=== PATIENT | female | born 1975 | race Hispanic/Latino ===

== ENCOUNTER 2018-04-25 14:45 | Emergency (ER) | payer BC ==
[~2018-04-25 14:45] MED LIST: Iopamidol 370 76% 100 ML VIAL ONE
[2018-04-25 15:33] LABS: #Basophils 0.1 thou/uL (0.0-0.2); #Eosinphils 0.3 thou/uL (0.0-0.7); #Lymphocytes 2.5 thou/uL (1.20-3.40); #Monocytes 0.6 thou/uL (0.11-0.59); #Neutrophils 5.9 thou/uL (1.40-6.50); %Basophils 1.1 % (0.0-1.0); %Eosinophils 3.1 % (0.0-10.0); %Lymphocytes 26.8 % (21.0-51.0); %Monocytes 5.9 % (0.0-10.0); %Neutrophils 63.1 % (42.0-75.0); Hemoglobin 13.7 g/dL (12.0-16.0); Mean Corpuscular HGB CONC 32.3 g/dL (32.0-36.0); Mean Corpuscular Hemoglobin 29.3 pg (27.0-31.0); Mean Corpuscular Volume 90.7 fL (78.0-98.0); Mean Platelet Volume 9.9 fL (7.4-10.4); Platelet Count 211 thou/uL (130-400); RBC Distribution Width 11.5 % (11.5-14.5); Red Blood Cell (RBC) Count 4.68 mill/uL (4.20-5.40); White Blood Cell (WBC) Count 9.3 thou/uL (4.8-10.8)
[2018-04-25 15:39] LABS: Bilirubin Negative (Negative); Blood, Urine Negative (Negative); Clarity Clear (Clear); Glucose, Urine (Dipstick) Negative (Negative); Leukocyte Negative (Negative); Nitrite Negative (Negative); Protein, Urine (Dipstick) Negative (Neg-Trace); Specific Gravity, Urine 1.015 (1.005-1.030); Urobilinogen 0.2 mg/dL (0.2-1.0)
[2018-04-25 15:47] LABS: BHCG - Serum Negative (NEGATIVE); Pregs Control Background? CLEAR/WHITE (CLR/WHITE); Pregs Control Bar Appear? YES (CONTROL BAR)
[2018-04-25 15:48] LABS: ALT (SGPT) 14 U/L (8-55); AST (SGOT) 16 U/L (5-34); Albumin 4.1 g/dL (3.5-5.0); Alkaline Phosphatase 56 U/L (40-150); Anion Gap 11 mmol/L (10-20); BUN (Urea Nitrogen) 10 mg/dL (7.0-18.7); Bilirubin, Total 0.4 mg/dL (0.2-1.2); Calc. Creatinine Clearance 0 mL/min (70-130); Calcium 9.2 mg/dL (7.8-10.44); Carbon Dioxide 25 mmol/L (22-29); Chloride 108 mmol/L (98-107); Estimated GFR-MDRD 84; Globulin 3.3 g/dL (2.4-3.5); Glucose 88 mg/dL (70-105); Lipase 51 U/L (8-78); Potassium 3.5 mmol/L (3.5-5.1); Protein, Total 7.4 g/dL (6.0-8.3); Sodium 140 mmol/L (136-145)
[2018-04-25] MEDS ORDERED: Morphine 4 MG/ML VIAL ONE (16:21)
[2018-04-25] MEDS ORDERED: Fentanyl 100 MCG/2 ML VIAL ONE (16:22)
--- NOTE | 2018-04-25 17:14 | CT ---
CT OF THE ABDOMEN AND PELVIS WITH CONTRAST 04/25/18 COMPARISON: None. HISTORY: Left flank pain that began yesterday. TECHNIQUE: Multiple contiguous axial images were obtained in a CT of the abdomen and pelvis with contrast. Coron al reformats were performed. FINDINGS: There is cortical thinning in the left kidney with associated calcifications. This may be from prior procedure or renal infarction. There are calcifications in the left kidney which are nonobstructing. Some of these may be cortically based but could also be collecting system calcifications. There are c alcifications in the left kidney which are nonobstructing. Some of these may be cortically based but there could also be collecting system calcifications. The largest measures 3 mm in size. No hydroneph rosis is seen on either side. Patient is status post cholecystectomy. There is intrahepatic biliary dilatation and enlargement of t he common bile duct to 11 mm. This may be a reservoir effect from prior cholecystectomy. The right ki dney, adrenal glands, spleen, and pancreas are unremarkable. The reproductive organs are unremarkable . The large and small bowel are unremarkable. The appendix is normal. No abdominal or pelvic lymphade nopathy are seen. The osseous structures, visualized inferior thorax and abdominal wall soft tissues are unremarkable. IMPRESSION: 1. Nonobstructing left renal calcifications. 2. Scarring versus postprocedural change in the left kidney. 3. Biliary dilatation is likely a reservoir effect from prior cholecystectomy. Correlate with LF Ts. POS: LYUDMILA
== END 2018-04-25 17:49 | disposition home or self-care (01) ==
LOC: SCSER 14:45
DX: N20.0 Calculus of kidney (principal); F17.200 Nicotine dependence, unspecified, uncomplicated
CPT/HCPCS: 36415; 74177; 80053; 81003; 83690; 84703; 85025; 96374; J2270; J3010

== ENCOUNTER 2018-06-04 11:30 | Inpatient (IN) | payer BC ==
[2018-06-04 12:30] VITALS: BMI 29.6
[2018-06-12] MEDS ORDERED: Fentanyl 250 MCG/5 ML VIAL ONE (07:12)
[2018-06-12] MEDS ORDERED: Heparin 5,000 UNITS/ML VIAL ONE (07:24)
[2018-06-12] MEDS ORDERED: Gabapentin 300 MG CAP ONE (07:24)
[2018-06-12] MEDS ORDERED: CeleCOXIB 100 MG CAP ONE ×2 (07:27→07:48)
[2018-06-12] MEDS ORDERED: Famotidine/PF 20 mg/2ml Vial ONE (07:27)
[2018-06-12] MEDS ORDERED: CEFAZOLIN/Water 2 GM/20 ML SYRINGE ONE (07:29)
[2018-06-12] MEDS ORDERED: Bupivacaine HCl 0.5%/Epinephrine 1:200,000/PF 30 ml Vial ONE (07:37)
[2018-06-12] MEDS ORDERED: Scopolamine 1.5 mg/72 hour Patch ONE (07:55)
[2018-06-12] MEDS ORDERED: Lidocaine 0.5%/Epinephrine 1:200,000 50 ml Vial ONE (08:21)
[2018-06-12] MEDS ORDERED: Promethazine HCl 25 MG/ML VIAL ONE (08:22)
[2018-06-12] MEDS ORDERED: Ondansetron HCl/PF 4 MG/2 ML Vial IVP PRN ×2 (11:44→13:22)
[2018-06-12] MEDS ORDERED: Ondansetron HCl/PF 4 MG/2 ML Vial ONE (13:12)
[2018-06-12] MEDS ORDERED: PHENYLEPHRINE-NS 100 MCG/ML 10 ML SYRINGE ONE (13:12)
[2018-06-12] MEDS ORDERED: Lidocaine 1% PF 5 ML VIAL ONE (13:12)
[2018-06-12] MEDS ORDERED: PROPOFOL 200 MG/20 ML VIAL ONE (13:12)
[2018-06-12] MEDS ORDERED: Ketorolac Tromethamine 30 MG/ML VIAL ONE (13:12)
[2018-06-12] MEDS ORDERED: ePHEDrine/0.9% NaCl/PF SYRINGE 50 mg/10 ml ONE ×2 (13:12)
[2018-06-12] MEDS ORDERED: Dexamethasone 20 MG/5 ML VIAL ONE (13:12)
[2018-06-12] MEDS ORDERED: Glycopyrrolate 0.2 MG/ML 5 ML SYRINGE ONE (13:12)
[2018-06-12] MEDS ORDERED: diphenhydrAMINE 25 MG CAP PO PRN (13:22)
[2018-06-12] MEDS ORDERED: Simethicone Chewable 80 MG TAB PO PRN (13:22)
[2018-06-12] MEDS ORDERED: Bisacodyl 10 MG SUPP PR PRN (13:22)
[2018-06-12] MEDS ORDERED: Zolpidem Tartrate 5 MG TAB PO PRN (13:22)
[2018-06-12] MEDS ORDERED: Promethazine HCl 25 MG/ML VIAL IM PRN (13:22)
[2018-06-12] MEDS ORDERED: traMADol HCl 50 MG TAB PO PRN (13:22)
[2018-06-12] MEDS: Acetaminophen 1,000 MG in Premix Bag 1 BAG IVPB SCH ×2 (14:23→21:15)
[2018-06-12] MEDS: Sodium Chloride 0.9% 1,000 ML IV SCH ×2 (14:48→19:33)
[2018-06-12] MEDS: Ketorolac Tromethamine 30 MG/ML VIAL IVP SCH ×2 (15:21→21:16)
[2018-06-12] MEDS ORDERED: Gabapentin 300 MG CAP PO SCH ×2 (21:00→23:00)
[2018-06-12] MEDS: Docusate Calcium (SURFAK) 240 MG CAP PO SCH (21:16)
[2018-06-13] MEDS: Sodium Chloride 0.9% 1,000 ML IV SCH (03:50)
[2018-06-13] MEDS: Ketorolac Tromethamine 30 MG/ML VIAL IVP SCH (03:51)
[2018-06-13] MEDS: Acetaminophen 1,000 MG in Premix Bag 1 BAG IVPB SCH (03:55)
[2018-06-13 07:18] LABS: Hemoglobin 11.9 g/dL (12.0-16.0); Mean Corpuscular HGB CONC 31.9 g/dL (32.0-36.0); Mean Corpuscular Hemoglobin 29.5 pg (27.0-31.0); Mean Corpuscular Volume 92.6 fL (78.0-98.0); Mean Platelet Volume 6.6 fL (7.4-10.4); Platelet Count 491 thou/uL (130-400); RBC Distribution Width 11.6 % (11.5-14.5); Red Blood Cell (RBC) Count 4.03 mill/uL (4.20-5.40); White Blood Cell (WBC) Count 12.8 thou/uL (4.8-10.8)
[2018-06-13] MEDS: traMADol HCl 50 MG TAB PO PRN ×2 (08:59→15:26)
[2018-06-13] MEDS ORDERED: Ibuprofen 800 MG TAB PO SCH (09:00)
[2018-06-13] MEDS ORDERED: Gabapentin 300 MG CAP PO SCH (09:00)
[2018-06-13] MEDS: Docusate Calcium (SURFAK) 240 MG CAP PO SCH (09:00)
--- NOTE | 2018-06-13 10:45 | OP ---
DATE OF OPERATION: 06/12/2018 PREOPERATIVE DIAGNOSES: 1. Menorrhagia. 2. Pelvic pain. 3. Stress urinary incontinence. POSTOPERATIVE DIAGNOSES: 1. Menorrhagia. 2. Pelvic pain. 3. Stress urinary incontinence. PROCEDURE: Robotic-assisted total laparoscopic hysterectomy, bilateral salpingectomy, [place] [facility] Advantage mid-urethral sling and cystoscopy. ANESTHESIA: General endotracheal. ATTENDING SURGEON: Diana Camarillo M.D. PHYSICIAN EXECUTIVE SURGEON: Yennifer Armenta M.D. ESTIMATED BLOOD LOSS: 100 mL. INTRAVENOUS FLUIDS: 800 mL crystalloid. URINE OUTPUT: 200 mL of clear urine. PATHOLOGY: Uterus, cervix, bilateral fallopian tubes. COMPLICATIONS: None. DRAINS: Barber catheter. FINDINGS: On exam under anesthesia, a 12-week sized uterus, normal appearing cervix. Uterus sounded to 9 cm. The fallopian tubes had bilateral hydrosalpinx and ovaries were normal appearing bilateral ly. The rest of intraabdominal survey was within normal limits. On cystoscopy, the bladder had no m asses or lesions. There was no suture material or mesh present in the bladder, specifically on the l ateral corners of the bladder. The ureters were noted to efflux bilaterally vigorously. OPERATIVE TECHNIQUE: The patient was taken to the operating room where general anesthesia was obtain ed without difficulty. The patient was prepped and draped in a sterile fashion in the dorsal lithoto my position. A Barber catheter was placed in the bladder. A speculum was placed in the vagina. The anterior lip of the cervix was grasped with a single tooth tenaculum. The uterus then sounded to 9 c m and the MICHAEL manipulator was assembled with an 8 cm tip and a 4 cm colpotomizer ring. The cervix w as dilated with Frederic dilators and the manipulator tip was inserted to the uterine fundus, balloon was inflated. Speculum was removed and the colpotomizer ring was advanced to fit snugly around the cerv ix. The rest of the instruments were removed out of the vagina and legs were placed in low lithotomy . Attention was turned to the abdomen. 0.5% Marcaine with epinephrine was infiltrated into the umbi licus, a 12 mm skin incision was made in the umbilicus and the Veress needle was passed to the abdome n noting an opening pressure of 3 mmHg. Pneumoperitoneum was obtained without difficulty. The Veres s needle was removed. The 12 mm trocar was advanced into the abdomen and confirmed placement with th e robotic camera. Steep Trendelenburg was obtained. The right and left lower 8 mm robotic trocars w ere placed under direct visualization. After infiltrating with 0.5% Marcaine with epinephrine a righ t upper quadrant 11 mm assistant superintendent for curriculum port was also placed under direct visualization after infiltrating w ith anesthetic. The robot was then docked, the right robotic arm contained the monopolar scissors, l eft robotic arm contained a fenestrated bipolar. The left fallopian tube was grasped and elevated. A window was made in the mesosalpinx. The vessels were cauterized with the fenestrated and the fallo pian tube was transected across and then removed out of the abdomen. The utero-ovarian was clamped i n the mid portion and cauterized x2 with of the fenestrated and transected in the midline. This was carried down sequentially cauterizing and then transecting with the scissors to the round ligament th at was then cauterized in the midportion and transected, which opened up the anterior and posterior l eaf of the broad ligament. Anterior leaf of the broad ligament was dropped down undermining with the fenestrated to the level of the bladder flap. The posterior leaf of the broad ligament was dropped down to the level of the uterosacral ligament. The vessels on the left side were skeletonized and th e remainder of the vesicouterine peritoneum was dissected down off of the cervix and the adventitia w as also dissected down with the scissors across the anterior pubocervical fascia. Attention was turn ed to the right side where the fallopian tube was grasped and elevated. The mesosalpinx was cauteriz ed and transected and the fallopian tube was clamped across, cauterized, transected and removed out o f the abdomen. The utero-ovarian was cauterized then transected and sequentially cauterized. Cauter y transected of the mesovarium down to the round ligament that was cauterized in the mid portion and transected. Hemostasis was achieved with the fenestrated medially. The anterior leaf of the broad l igament was also dropped down to the level of the contralateral incision and the posterior leaf of th e broad ligament was dropped down to the uterosacral ligament and the vessels were adequately skeleto nized, allowing the ureter to drop well away which the ureter was visualized bilaterally during this process. The vessels were adequately skeletonized and then cauterized several times with the fenestr ated and then the vessels were transected at the level of the internal cervical os. The left side of the uterine pedicle was also then cauterized and transected. The anterior colpotomy was then perfor med at the level of the colpotomizer ring and this was carried around laterally and then completed po steriorly also. Hemostasis was achieved of the vaginal cuff and the uterus was then placed into the vagina as a means to maintain pneumoperitoneum. The scissors were traded out for the needle putaway driver a nd the Stratafix barbed suture was used to close the cuff in a running fashion with incorporation of vaginal mucosa in each bite and posterior peritoneum in each bite. Cuff closure was excellent and he mostasis was noted. The needle was removed out of the abdomen. Copious irrigation of the pelvis was performed and hemostasis was excellent. The robot was undocked. All instruments were removed out o f the abdomen and pneumoperitoneum was released. The fascia of the camera port was closed with 0 Mario ryl in a [id number] fashion. The skin was closed with 4-0 Monocryl in subcuticular fashion. De rmabond was applied. Attention was then turned to the vagina where the weighted speculum was placed and the mid urethra wa s identified and grasped with Allis clamps in the anterior, proximal and distal segment. The mid ure thra was then infiltrated with 0.25% Marcaine with epinephrine and approximately a 3 cm incision was made on the anterior vaginal wall in the mid urethral area. The Metzenbaums were then used to dissec t out the subpubic space. At that time legs had previously been placed in a flexed position for visu alization, but the legs were placed in low lithotomy at this time, and the pubic bone was then marked where the mesh would exit and hydrodissection was performed with 30 mL of sterile saline in these ar eas bilaterally and the retropubic space from the pubic bone down to the retropubic space with a spin al needle. A guidewire on the Barber catheter was then placed and the bladder was deviated to the rig ht. The sling was then placed on the left side first and this was the [employer] vascular solution [employer] Advantage sl ing from the vaginal mucosal incision up through the retropubic space and exiting the suprapubic area . The needle was ensured to be in correct orientation and snugly hug the pubic bone during the place ment. The same procedure was then performed on the right side after deviating the bladder to the lef t. At that time, the Barber catheter was removed and the 70 degree cystoscope was inserted into the b ladder, noting no bladder injury occurred with the hysterectomy or the sling placement after a thorou gh examination and bladder filling. There were no masses and the ureters quickly effluxed bilaterall y. The cystoscope was removed. The Barber catheter was replaced. The mesh was then tightened approp riately pulling up on the plastic sheaths on the pubic bone by the assistant superintendent for curriculum and using a curved Briceño scissors to place in between the mesh and the mid urethra to ensure no over tightening. The tab was then cut and the plastic sheaths were removed as well as the Briceño scissors. Hemostasis was noted of this vaginal incision and this was closed with a 2-0 Vicryl in a [id number] fashion with excelle nt reapproximation after copiously irrigating the mesh. The vaginal cuff was noted to be hemostatic with excellent closure and all instruments were removed out of the vagina. The vaginal packing was p laced in the vagina. The patient tolerated procedure well. Sponge, lap, needle counts were correct x2. The patient was taken to recovery in stable condition. The patient received Ancef 2 grams prior to the procedure.
[2018-06-13 11:32] VITALS: BP 117/70; TEMP 98.7
[2018-06-13] MEDS ORDERED: Acetaminophen 500 MG TAB PO SCH (12:00)
--- NOTE | 2018-06-13 12:07 | DIS ---
DATE OF ADMISSION: 06/12/2018 DATE OF DISCHARGE: 06/13/2018 ADMISSION DIAGNOSES: 1. Menorrhagia. 2. Pelvic pain. 3. Stress urinary incontinence. DISCHARGE DIAGNOSES: Status post robotic assisted total laparoscopic hysterectomy, bilateral salping ectomy, mid urethral sling placement and cystoscopy. DISCHARGE CONDITION: Stable. ATTENDING PHYSICIAN: Diana Camarillo M.D. CONSULTATIONS: None. PROCEDURES: As listed in discharge diagnoses. HISTORY AND PHYSICAL EXAMINATION: Please see previously dictated H&P. HOSPITAL COURSE: A 42-year-old presented to day stay to undergo scheduled surgery as listed above. That was uncomplicated with an estimated blood loss of 100 mL. Postoperatively, she went to the [facility], pain was well controlled, initially managed on Toradol, IV Tylenol, p.r.n. morphine. Once she was tolerating a regular diet, she was transitioned to p.o. ibuprofen, Tylenol and tramadol. She was on ERAS protocol as well. The patient did very well in regards to pain. She was able to ambulate with out difficulty. She tolerated a regular diet and on postoperative day #1, she had a voiding trial wh ere the bladder was back filled with 300 mL. She voided 200 mL and then had a straight cath for 200 mL. On subsequent voiding trial, she was not emptying her bladder quite completely; however, she was given an additional attempt, but the results of that are pending and she will be sent home if her po stvoid residual is greater than 30% of the voided total volume. PHYSICAL EXAMINATION: VITAL SIGNS: On postoperative day #1, temperature 98.2, pulse is 60, respirations 18, pulse ox 98% o n room air, blood pressure 127/73. GENERAL: No acute distress, alert and oriented x3. CARDIAC: Regular rate and rhythm. LUNGS: Clear to auscultation bilaterally. ABDOMEN: Soft, nontender, nondistended. Incision is clean, dry, and intact. EXTREMITIES: No edema, cyanosis or clubbing. LABORATORY DATA: Hemoglobin 11.9, hematocrit 37.3, platelets 491. Intake is 900, output is 3100 mL. The patient is postoperative day #1 with stable vital signs, meeting postop milestones with the excep tion of a complete bladder emptying. This is pending and the patient will potentially go home with a catheter if necessary. She is doing well otherwise and is cleared for discharge and will continue i buprofen and Tylenol scheduled at home and takes tramadol p.r.n. Final pathology is pending at the t [facility] of discharge.
== END 2018-06-13 15:42 | disposition home or self-care (01) | DRG 743 ==
LOC: SURG A 06-12 07:00 → 3SE 06-12 12:10
PROVIDERS: ADMIT Student in an Organized Health Care Education/Training Program; ATTEND Student in an Organized Health Care Education/Training Program
PROC: 0UT94ZZ Resection of Uterus, Percutaneous Endoscopic Approach (ICD-10-PCS; principal; 2018-06-12)
PROC: 0UT74ZZ Resection of Bilateral Fallopian Tubes, Percutaneous Endoscopic Approach (ICD-10-PCS; 2018-06-12)
PROC: 0TSD4ZZ Reposition Urethra, Percutaneous Endoscopic Approach (ICD-10-PCS; 2018-06-12)
PROC: 8E0W4CZ Robotic Assisted Procedure of Trunk Region, Percutaneous Endoscopic Approach (ICD-10-PCS; 2018-06-12)
PROC: 0TJB8ZZ Inspection of Bladder, Via Natural or Artificial Opening Endoscopic (ICD-10-PCS; 2018-06-12)
DX: N80.0 Endometriosis of uterus (principal); N39.3 Stress incontinence (female) (male)
CPT/HCPCS: 36415; 85027; 88307; C1781; J0131; J0670; J1100; J1644; J1885; J2001; J2270; J2405; J2550; J2704; J3010; Q9968; S0028

== ENCOUNTER 2018-06-05 10:12 | Outpatient (CLI) | payer BC ==
[2018-06-05 11:07] LABS: Hemoglobin 13.2 g/dL (12.0-16.0); Mean Corpuscular HGB CONC 32.3 g/dL (32.0-36.0); Mean Corpuscular Hemoglobin 30.1 pg (27.0-31.0); Mean Corpuscular Volume 93.3 fL (78.0-98.0); Mean Platelet Volume 7.7 fL (7.4-10.4); Platelet Count 316 thou/uL (130-400); RBC Distribution Width 11.5 % (11.5-14.5); Red Blood Cell (RBC) Count 4.37 mill/uL (4.20-5.40); White Blood Cell (WBC) Count 5.5 thou/uL (4.8-10.8)
[2018-06-05 11:14] LABS: BHCG - Serum Negative (NEGATIVE); Pregs Control Background? CLEAR/WHITE (CLR/WHITE); Pregs Control Bar Appear? YES (CONTROL BAR)
== END 2018-06-05 10:13 | disposition home or self-care (01) ==
LOC: LABBT 10:12
PROVIDERS: ATTEND Student in an Organized Health Care Education/Training Program
DX: Z01.812 Encounter for preprocedural laboratory examination (principal); N80.9 Endometriosis, unspecified; N39.3 Stress incontinence (female) (male)
CPT/HCPCS: 84703; 85027; 86850; 86900; 86901

== ENCOUNTER 2021-10-08 14:48 | Outpatient (CLI) | payer BC | END 2021-10-08 14:49 | disposition home or self-care (01) | LOC: BICRAD 14:48 | PROVIDERS: ATTEND Family Medicine | DX: M79.644 Pain in right finger(s) (principal) ==